=== PATIENT | female | born 1960 | race Caucasian/White ===

== ENCOUNTER 2017-09-17 10:51 | Outpatient (CLI) | payer MEDICARE, MEDICAID | END 2017-09-17 10:52 | disposition home or self-care (01) | DRG 563 | LOC: CONVCARE 10:51 | PROVIDERS: ATTEND Orthopaedic Surgery | DX: S93.115A Dislocation of interphalangeal joint of left lesser toe(s), initial encounter (principal) | CPT/HCPCS: 73660 ==

== ENCOUNTER 2017-09-25 07:07 | Day surgery (SDC) | payer MEDICARE, MEDICAID ==
[2017-09-25] MEDS ORDERED: FENTANYL 100MCG/2ML SOL ONE (07:23)
[2017-09-25] MEDS ORDERED: MIDAZOLAM 2 MG/2 ML SOL ONE (07:23)
[2017-09-25] MEDS ORDERED: LIDOCAINE HCL 1% MPF SOL ONE (07:23)
[2017-09-25] MEDS ORDERED: PROPOFOL 500 MG/50 ML EMU IV ONE (07:23)
[2017-09-25 07:30] VITALS: RESP 16
[2017-09-25] MEDS ORDERED: CEFAZOLIN SODIUM 1 GM PDS ONE (07:53)
[2017-09-25] MEDS ORDERED: BUPIVACAINE HCL 0.5% MPF 10 ML SOL ONE ×2 (08:03)
[2017-09-25] MEDS ORDERED: LIDOCAINE HCL 2% MPF SOL ONE (08:13)
[2017-09-25] MEDS ORDERED: ONDANSETRON HCL 4 MG/2 ML SOL ONE (08:41)
[2017-09-25] MEDS ORDERED: METOCLOPRAMIDE HYDROCHLORIDE 5 MG/ML SOL ONE (08:41)
[2017-09-25] MEDS ORDERED: KETOROLAC TROMETHAMINE 30 MG/ML SOL ONE (09:49)
[2017-09-25 10:44] VITALS: PULSE 73; TEMP 98; O2SAT 97
[2017-09-25 10:47] VITALS: BP 157/76
== END 2017-09-25 11:15 | disposition home or self-care (01) | DRG 563 ==
LOC: SURG 07:07
PROVIDERS: ATTEND Orthopaedic Surgery
DX: S93.115A Dislocation of interphalangeal joint of left lesser toe(s), initial encounter (principal)
CPT/HCPCS: 76000; J0690; J1885; J2250; J2405; J2765; J3010; A6402; J2001; J2704

== ENCOUNTER 2017-10-08 10:45 | Outpatient (CLI) | payer MEDICARE, MEDICAID ==
[2017-09-25 10:44] VITALS: O2SAT 97
== END 2017-10-08 10:46 | disposition home or self-care (01) | DRG 561 ==
LOC: CONVCARE 10:45
PROVIDERS: ATTEND Orthopaedic Surgery
DX: S92.512D Displaced fracture of proximal phalanx of left lesser toe(s), subsequent encounter for fracture with routine healing (principal)
CPT/HCPCS: 73660

== ENCOUNTER 2017-11-05 15:16 | Outpatient (CLI) | payer MEDICARE, MEDICAID ==
[2017-09-25 10:44] VITALS: O2SAT 97
== END 2017-11-05 15:17 | disposition home or self-care (01) | DRG 950 ==
LOC: CONVCARE 15:16
PROVIDERS: ATTEND Orthopaedic Surgery
DX: S93.105D Unspecified dislocation of left toe(s), subsequent encounter (principal)
CPT/HCPCS: 73660